=== PATIENT | male | born 1985 | race Two or more races ===

== ENCOUNTER 2025-06-17 21:06 | Emergency (ER) | payer OTHER ==
[~2025-06-17] VITALS: Ht 182.9 cm; Wt 85.4 kg
[2025-06-17] MEDS ORDERED: LEVOTHYROXINE100 MC2 (21:21)
[2025-06-17] MEDS ORDERED: ASPIRIN 81 MG CHEW PO ONE (21:30)
[2025-06-17 21:36] LABS: INR 1.0 (0.80-1.30); PROTIME 12.5 Sec (11.2-14.2)
[2025-06-17 21:44] LABS: ALT (SGPT) 73.0 U/L (14-59); AST (SGOT) 37.0 U/L (15-37); GLOMERULAR FILTRATION RATE,EST 115.0 mL/min (>60); PROTEIN, TOTAL 8.7 g/dL (6.4-8.2); UREA NITROGEN 12.0 mg/dL (7-18)
[2025-06-17 21:59] LABS: BASOPHILS 0.8 % (0.2-1.2); EOSINOPHILS 2.4 % (0.8-7.0); LYMPHOCYTES 39.6 % (21.8-53.1); MCH 28.5 PG (25.7-32.2); MCHC 33.4 g/dL (32.3-36.5); MCV 85.4 fL (79.0-92.2); MONOCYTES 6.7 % (5.3-12.2); NEUTROPHILS 50.2 % (34.0-67.9); RBC 5.22 M/uL (4.63-6.08)
[2025-06-17] MEDS ORDERED: CYCLOBENZAPRINE10 MG PO (23:26)
[2025-06-17 23:34] VITALS: BP 132/89
--- NOTE | 2025-06-18 11:43 | EKG ---
[facility] [address] [place], [place] [address] Signed Normal sinus rhythm Normal ECG No previous ECGs available Confirmed by CYNTHIA HANSON MD ([id number]) on 06/18/2025 11:43:07 AM Electronically Signed By: CYNTHIA HANSON 06/18/25 1143 PATIENT NAME: CATALINO THOMASElla TALLEY Electrocardiogram DATE OF : 87 PHYSICIAN: CYNTHIA HANSON REPORT #: [id number] REPORT IS CONFIDENTIAL AND NOT TO BE RELEASED WITHOUT AUTHORIZATION
== END 2025-06-17 23:38 | disposition home or self-care (01) ==
LOC: ED 21:06
PROVIDERS: Family Medicine
DX: R07.89 Other chest pain (principal); E03.9 Hypothyroidism, unspecified; Z79.890 Hormone replacement therapy
CPT/HCPCS: 36415; 71045; 80053; 83735; 84484; 85025; 85379; 85610; 93005; 93010; 99285-25; A9270